=== PATIENT | male | born 1970 | race African-American/Black ===

== ENCOUNTER 2017-09-02 16:23 | Emergency (ER) | payer OTHER ==
[2017-09-02 16:32] VITALS: BP 126/78
--- NOTE | 2017-09-02 16:40 | ED Physician Documentation ---
PD HPI UPPER EXT INJURY - Stated complaint Stated Complaint: METAL SCRAPE - Chief complaint Chief Complaint: Wound - History obtained from History obtained from: Patient - History of Present Illness Location: Left, Forearm Type of injury: Fall Where injury occurred: Work Timing - onset: Today Timing - duration: Hours Timing - details: Abrupt onset, Still present Improved by: Rest, Dressing Worsened by: Moving Associated symptoms: No: Weakness Contributing factors: No: Anticoagulated Similar symptoms before: Has not had sx before Recently seen: Not recently seen - Additonal information Additional information: 45-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 He would like to get a tetanus booster. Review of Systems Constitutional: denies: Fever Respiratory: denies: Cough GI: denies: Vomiting Neurologic: denies: Focal weakness, Numbness PD PAST MEDICAL HISTORY - Allergies Allergies/Adverse Reactions: Allergies Allergy/AdvReac Type Severity Reaction Status Date / Time No Known Drug Allergies Allergy Verified 09/02/17 16:32 PD ED PE NORMAL - Vitals Vital signs reviewed: Yes (normal ) - General General: No acute distress, Well developed/nourished - HEENT HEENT: Atraumatic, PERRL - Neck Neck: Supple, no meningeal sign - Respiratory Respiratory: No respiratory distress - Derm Derm: Normal color, Warm and dry, No rash - Extremities Extremities: No deformity, No edema, Other (over the volar surface of the left forearm he has a 7mm round abrasion . distal n/v is intact. ) - Neuro Neuro: No motor deficit, No sensory deficit - Psych Psych: Normal mood, Normal affect Results - Vitals Vitals: Vital Signs - 24 hr 09/02/17 16:29 Temperature 36.3 C L Heart Rate 67 Respiratory 14 Rate Blood Pressure 126/78 O2 Saturation 99 Oxygen O2 Source Room air PD MEDICAL DECISION MAKING - ED course Complexity details: re-evaluated patient ED course: 45-year-old male with a an abrasion to his left forearm and contaminated soil has been given local wound care and a tetanus booster. Departure - Departure Disposition: 01 Home, Self Care Clinical Impression: Abrasion Condition: Stable Instructions: ED Abrasion Follow-Up: [facility] [Provider Group] Discharge Date/Time: 09/02/17 17:11
[2017-09-02] MEDS ORDERED: TETANUS/DIPHTHERIA/PERTUSSIS 0.5 ML SYRINGE IM ONE (16:49)
[2017-09-02] MEDS: TETANUS/DIPHTHERIA/PERTUSSIS 0.5 ML SYRINGE IM ONE (16:57)
== END 2017-09-02 17:11 | disposition home or self-care (01) ==
LOC: EDBD → ED 16:23
DX: S50.812A Abrasion of left forearm, initial encounter (principal); W18.09XA Striking against other object with subsequent fall, initial encounter; Y93.89 Activity, other specified; Y92.009 Unspecified place in unspecified non-institutional (private) residence as the place of occurrence of the external cause; Y99.0 Civilian activity done for income or pay; Z23 Encounter for immunization
CPT/HCPCS: 1040M; 90471; 99282; 99283